=== PATIENT | female | born 1970 | race Caucasian/White ===

== ENCOUNTER 2017-10-24 15:03 | Emergency (ER) | payer SELFPAY ==
[~2017-10-24] VITALS: Ht 160 cm; Wt 75.0 kg
[2017-10-24] MEDS ORDERED: INSU100V12 SQ (15:50)
[2017-10-24 15:52] LABS: GLUCOSE,POINT OF CARE 385 MG/DL (70-110)
[2017-10-24] MEDS ORDERED: BENZOCAINE 20% 30 ML SOLUTION TP ONE (19:00)
[2017-10-24] MEDS ORDERED: HYDROCODONE/ACETAMINOPHEN 5-325 MG TABLET PO ONE (19:00)
[2017-10-24 20:10] VITALS: BP 134/84
== END 2017-10-24 20:14 | disposition home or self-care (01) ==
LOC: EMS 15:04
DX: L03.011 Cellulitis of right finger (principal); M79.5 Residual foreign body in soft tissue; E11.9 Type 2 diabetes mellitus without complications
CPT/HCPCS: 10060; 82962; 99284